=== PATIENT | male | born 1945 | race Caucasian/White ===

== ENCOUNTER 2022-11-01 15:43 | Emergency (ER) | payer MEDICARE ==
[~2022-11-01] VITALS: Ht 182.9 cm; Wt 70.8 kg
[2022-11-01] MEDS ORDERED: ULTRAM 50MG50 MG PO (16:09)
[2022-11-01] MEDS ORDERED: LISINOPRIL10 MG PO (16:11)
== END 2022-11-01 16:30 | disposition home or self-care (01) ==
LOC: ER 15:52
DX: M25.562 Pain in left knee (principal); M25.561 Pain in right knee; R42 Dizziness and giddiness; I10 Essential (primary) hypertension
CPT/HCPCS: 99282

== ENCOUNTER 2023-01-03 10:52 | Inpatient (IN) | payer MEDICARE, OTHER ==
[~2023-01-03] VITALS: Ht 182.9 cm; Wt 72.6 kg
[~2023-01-03 10:52] MED LIST: LISINOPRIL10 MG PO; ULTRAM 50MG50 MG PO
[2023-01-03] MEDS ORDERED: SODIUM CHLORIDE 0.9% 500ML 500 ML IV ONE (11:45)
[2023-01-03 11:47] LABS: BASOPHILS % 0.2 % (0.0-1.0); EOSINOPHILS # (AUTO) 0.8 (0.0-0.4); HEMATOCRIT 28.8 % (38.2-49.6); HEMOGLOBIN 10.8 g/dL (14.0-18.0); LYMPHOCYTES # (AUTO) 1.6 (1.0-3.2); MEAN CORPUSCULAR HEMOGLOBIN 34.2 pg (28-32); MEAN CORPUSCULAR HGB CONC 37.5 g/dL (31-35); MEAN CORPUSCULAR VOLUME 91.1 fL (81-99); MONOCYTES # (AUTO) 0.6 (0.2-0.8); MONOCYTES % 12.9 % (4.4-11.3); NEUTROPHILS # (AUTO) 1.8 (2.1-6.9); NEUTROPHILS % 37.5 % (38.7-80.0); PLATELET COUNT 164 x10e3/uL (140-360); RED BLOOD COUNT 3.16 x10e6/uL (4.3-5.7)
[2023-01-03 12:01] LABS: INR 0.93; PROTHROMBIN TIME 12.9 seconds (11.9-14.5)
[2023-01-03 12:07] LABS: ALBUMIN 3.3 g/dL (3.5-5.0); ALBUMIN/GLOBULIN RATIO 1.2 (0.8-2.0); ANION GAP 11.9 mmol/L (8-16); CALCIUM 8.6 mg/dL (8.4-10.2); CREATININE, SERUM 1.46 mg/dL (0.72-1.25); POTASSIUM 3.9 mmol/L (3.5-5.1)
[2023-01-03 12:33] LABS: CLARITY,URINE CLEAR (CLEAR); COLOR,URINE YELLOW (YELLOW); KETONES,URINE NEGATIVE (NEGATIVE); LEUKOCYTE ESTERASE ,URINE NEGATIVE (NEGATIVE); NITRITE,URINE NEGATIVE (NEGATIVE); PROTEIN,URINE DIPSTICK NEGATIVE (NEGATIVE); URINE UROBILINOGEN 0.2 mg/dL (0.2 - 1)
[2023-01-03 12:34] LABS: RBC,URINE 0-5 /HPF (0-5); WBC,URINE (MAN) 0-5 /HPF (0-5)
[2023-01-03 12:35] LABS: BACTERIA,URINE FEW /HPF; EPITHELIAL CELLS,URINE MODERATE /LPF
[2023-01-03] MEDS ORDERED: ONDANSETRON HCL INJ 2MG/ML 2ML 2 MG/ML VIAL IV PRN (13:00)
[2023-01-03] MEDS ORDERED: NITROGLYCERIN 0.4 MG SUBL SL PRN (13:00)
[2023-01-03] MEDS ORDERED: ASPIRIN 81 MG CHEW TAB PO ONE (13:15)
[2023-01-03 15:00] VITALS: BP 176/81; PULSE 58; RESP 19; TEMP 97.9; O2SAT 96
[2023-01-03] MEDS: FAMOTIDINE 20 MG/2 ML VIAL IV SCH ×2 (15:00→21:50)
[2023-01-03 15:22] VITALS: BP 176/81; PULSE 58; RESP 19; TEMP 97.9; O2SAT 96
[2023-01-03] MEDS ORDERED: HYDRALAZINE HCL 20 MG/ML VIAL IV PRN (20:30)
[2023-01-03 21:40] VITALS: BP 167/89; PULSE 59; RESP 18; TEMP 97.6; O2SAT 100
[2023-01-04] VITALS (9 sets, daily range): BP systolic 126–167; BP diastolic 62–89; PULSE 59–80; RESP 17–21; TEMP 97.4–97.9; O2SAT 97–100
[2023-01-04 03:28] LABS: BASOPHILS % 0.4 % (0.0-1.0); EOSINOPHILS # (AUTO) 0.7 (0.0-0.4); EOSINOPHILS % 12.1 % (0.0-6.0); HEMATOCRIT 29.3 % (38.2-49.6); HEMOGLOBIN 10.7 g/dL (14.0-18.0); LYMPHOCYTES # (AUTO) 1.1 (1.0-3.2); LYMPHOCYTES % 19.2 % (18.0-39.1); MEAN CORPUSCULAR HEMOGLOBIN 33.3 pg (28-32); MEAN CORPUSCULAR HGB CONC 36.5 g/dL (31-35); MEAN CORPUSCULAR VOLUME 91.3 fL (81-99); MONOCYTES # (AUTO) 0.6 (0.2-0.8); MONOCYTES % 11.5 % (4.4-11.3); NEUTROPHILS # (AUTO) 3.1 (2.1-6.9); NEUTROPHILS % 56.3 % (38.7-80.0); PLATELET COUNT 129 x10e3/uL (140-360); RED BLOOD COUNT 3.21 x10e6/uL (4.3-5.7)
[2023-01-04 03:49] LABS: ALBUMIN/GLOBULIN RATIO 1.2 (0.8-2.0); ANION GAP 12.7 mmol/L (8-16); CALCIUM 8.5 mg/dL (8.4-10.2); CHOL/HDL RATIO 3.6 (3.9-4.7); CREATININE, SERUM 1.37 mg/dL (0.72-1.25); POTASSIUM 3.7 mmol/L (3.5-5.1)
[2023-01-04] MEDS: FAMOTIDINE 20 MG/2 ML VIAL IV SCH ×2 (09:27→20:39)
[2023-01-04] MEDS: ASPIRIN 81 MG ENTERIC COATED PO SCH (09:27)
[2023-01-04] MEDS ORDERED: SODIUM CHLORIDE 1 GM TAB PO ONE (11:15)
[2023-01-04] MEDS ORDERED: LORAZEPAM INJ 2 MG/ML VIAL IV ONE (12:00)
[2023-01-04] MEDS: NICOTINE 21 MG/EA PATCH TOP SCH (13:52)
[2023-01-04] MEDS ORDERED: NIFEDIPINE CR 30 MG TAB PO ONE (14:00)
[2023-01-04] MEDS: NIFEDIPINE CR 30 MG TAB PO SCH (20:39)
[2023-01-04] MEDS: ATORVASTATIN 40 MG TAB PO SCH (20:39)
[2023-01-05] VITALS (7 sets, daily range): BP systolic 121–159; BP diastolic 59–82; PULSE 79–87; RESP 17–19; TEMP 97.4–97.9; O2SAT 98–100
[2023-01-05 05:49] LABS: BASOPHILS % 0.2 % (0.0-1.0); EOSINOPHILS # (AUTO) 0.3 (0.0-0.4); EOSINOPHILS % 6.3 % (0.0-6.0); HEMATOCRIT 28.4 % (38.2-49.6); HEMOGLOBIN 10.4 g/dL (14.0-18.0); LYMPHOCYTES # (AUTO) 0.7 (1.0-3.2); LYMPHOCYTES % 13.2 % (18.0-39.1); MEAN CORPUSCULAR HEMOGLOBIN 33.4 pg (28-32); MEAN CORPUSCULAR HGB CONC 36.6 g/dL (31-35); MEAN CORPUSCULAR VOLUME 91.3 fL (81-99); MONOCYTES # (AUTO) 0.6 (0.2-0.8); MONOCYTES % 11.7 % (4.4-11.3); NEUTROPHILS # (AUTO) 3.6 (2.1-6.9); NEUTROPHILS % 68.2 % (38.7-80.0); PLATELET COUNT 160 x10e3/uL (140-360); RED BLOOD COUNT 3.11 x10e6/uL (4.3-5.7); RED CELL DISTRIBUTION WIDTH 11.3 % (11.7-14.4)
[2023-01-05 06:11] LABS: ALBUMIN 3.2 g/dL (3.5-5.0); ALBUMIN/GLOBULIN RATIO 1.2 (0.8-2.0); ANION GAP 12.7 mmol/L (8-16); CALCIUM 8.5 mg/dL (8.4-10.2); CREATININE, SERUM 1.55 mg/dL (0.72-1.25); POTASSIUM 3.7 mmol/L (3.5-5.1)
[2023-01-05] MEDS: NICOTINE 21 MG/EA PATCH TOP SCH (08:41)
[2023-01-05] MEDS: ASPIRIN 81 MG ENTERIC COATED PO SCH (08:42)
[2023-01-05] MEDS: FAMOTIDINE 20 MG/2 ML VIAL IV SCH ×2 (08:42→21:17)
[2023-01-05] MEDS: NIFEDIPINE CR 30 MG TAB PO SCH ×2 (08:42→21:17)
[2023-01-05] MEDS: SODIUM CHLORIDE 0.9% 1000ML 1,000 ML IV SCH (15:25)
[2023-01-05] MEDS: ATORVASTATIN 40 MG TAB PO SCH (21:15)
[2023-01-06] VITALS: BP_SYST 130; BP_SYST 155; BP_DIAS 65; BP_DIAS 74; PULSE 84; PULSE 87; RESP 17; RESP 18; TEMP 97.6; TEMP 97.8; O2SAT 100
[2023-01-06] MEDS: SODIUM CHLORIDE 0.9% 1000ML 1,000 ML IV SCH ×2 (02:30→09:48)
[2023-01-06 04:00] VITALS: BP 132/69; PULSE 69; RESP 18; TEMP 98.4; O2SAT 97
[2023-01-06 06:19] LABS: BASOPHILS % 0.2 % (0.0-1.0); EOSINOPHILS # (AUTO) 0.5 (0.0-0.4); EOSINOPHILS % 12.4 % (0.0-6.0); HEMATOCRIT 29.3 % (38.2-49.6); HEMOGLOBIN 10.6 g/dL (14.0-18.0); LYMPHOCYTES # (AUTO) 1.1 (1.0-3.2); LYMPHOCYTES % 26.4 % (18.0-39.1); MEAN CORPUSCULAR HEMOGLOBIN 33.7 pg (28-32); MEAN CORPUSCULAR HGB CONC 36.2 g/dL (31-35); MONOCYTES # (AUTO) 0.6 (0.2-0.8); MONOCYTES % 13.8 % (4.4-11.3); PLATELET COUNT 180 x10e3/uL (140-360); RED BLOOD COUNT 3.15 x10e6/uL (4.3-5.7); RED CELL DISTRIBUTION WIDTH 11.7 % (11.7-14.4)
[2023-01-06 06:40] LABS: ANION GAP 12.6 mmol/L (8-16); CALCIUM 8.9 mg/dL (8.4-10.2); CREATININE, SERUM 1.57 mg/dL (0.72-1.25); POTASSIUM 3.6 mmol/L (3.5-5.1)
[2023-01-06 08:21] VITALS: BP 134/76; PULSE 74; RESP 17; TEMP 97.5; O2SAT 99
[2023-01-06] MEDS ORDERED: NICOTINE 14 MG/EA PATCH TOP SCH (09:00)
[2023-01-06] MEDS: ASPIRIN 81 MG ENTERIC COATED PO SCH (09:31)
[2023-01-06] MEDS: NICOTINE 21 MG/EA PATCH TOP SCH (09:31)
[2023-01-06] MEDS: NIFEDIPINE CR 30 MG TAB PO SCH (09:31)
[2023-01-06] MEDS: FAMOTIDINE 20 MG/2 ML VIAL IV SCH (09:48)
[2023-01-06] MEDS ORDERED: SODIUM CHLORIDE 0.9% 1000ML 1,000 ML IV SCH (11:30)
[2023-01-06 12:16] VITALS: BP 158/78; PULSE 98; RESP 16; TEMP 97.4; O2SAT 99
[2023-01-06] MEDS ORDERED: ONDANSETRON HCL 4 MG ORAL DISINTEGRATING TAB PO PRN (14:15)
[2023-01-06] MEDS ORDERED: CARVEDILOL 3.125 MG TAB PO SCH (17:00)
[2023-01-06 17:56] VITALS: BP 129/66; PULSE 78; RESP 14; TEMP 97.7; O2SAT 100
[2023-01-06] MEDS ORDERED: COREG3.125 MG PO (18:16)
[2023-01-06] MEDS ORDERED: COZAAR25 MG PO (18:16)
[2023-01-06] MEDS ORDERED: ASPIRIN EC81 MG PO (18:16)
[2023-01-06] MEDS ORDERED: ATORVASTATIN CA40 MG PO (18:16)
[2023-01-06] MEDS ORDERED: FAMOTIDINE 20 MG TAB PO SCH (21:00)
[2023-01-07] MEDS ORDERED: LOSARTAN POTASSIUM 25 MG TAB PO SCH (09:00)
== END 2023-01-06 19:45 | disposition home or self-care (01) | DRG 640 ==
LOC: ER 10:56 → ERHOLD 13:04 → MED/SURG2 14:32
PROVIDERS: ADMIT Internal Medicine; ATTEND Internal Medicine
DX: E87.1 Hypo-osmolality and hyponatremia (principal); G93.41 Metabolic encephalopathy; I50.33 Acute on chronic diastolic (congestive) heart failure; I13.0 Hypertensive heart and chronic kidney disease with heart failure and stage 1 through stage 4 chronic kidney disease, or unspecified chronic kidney disease; N18.30 Chronic kidney disease, stage 3 unspecified; F17.210 Nicotine dependence, cigarettes, uncomplicated; R77.8 Other specified abnormalities of plasma proteins; D64.9 Anemia, unspecified; R60.0 Localized edema
CPT/HCPCS: 36415; 71045; 80048; 80053; 80061; 81001; 82550; 83735; 83880; 84484; 85025; 85610; 85730; 93005; 93306; 99284; J2060; J2405; J7030; J7040

== ENCOUNTER → 2023-08-15 | Day surgery (SDC) | payer MEDICARE, OTHER ==
[2023-08-12 11:47] LABS: BASOPHILS % 0.3 % (0.0-1.0); EOSINOPHILS # (AUTO) 0.9 (0.0-0.4); EOSINOPHILS % 14.8 % (0.0-6.0); HEMATOCRIT 35.5 % (38.2-49.6); HEMOGLOBIN 11.5 g/dL (14.0-18.0); LYMPHOCYTES # (AUTO) 1.7 (1.0-3.2); LYMPHOCYTES % 28.1 % (18.0-39.1); MEAN CORPUSCULAR HEMOGLOBIN 34.4 pg (28-32); MEAN CORPUSCULAR HGB CONC 32.4 g/dL (31-35); MEAN CORPUSCULAR VOLUME 106.3 fL (81-99); MONOCYTES # (AUTO) 0.7 (0.2-0.8); NEUTROPHILS # (AUTO) 2.7 (2.1-6.9); NEUTROPHILS % 44.5 % (38.7-80.0); PLATELET COUNT 174 x10e3/uL (140-360); RED BLOOD COUNT 3.34 x10e6/uL (4.3-5.7); RED CELL DISTRIBUTION WIDTH 12.5 % (11.7-14.4); WHITE BLOOD COUNT 6.02 x10e3/uL (4.8-10.8)
[2023-08-12 11:59] LABS: INR 0.98; PROTHROMBIN TIME 13.2 seconds (11.9-14.5)
[2023-08-12 12:00] LABS: PARTIAL THROMBOPLASTIN TIME 29.9 seconds (23.8-35.5)
[2023-08-12 12:04] LABS: ANION GAP 13.7 mmol/L (8-16); CALCIUM 9.2 mg/dL (8.4-10.2); CREATININE, SERUM 2.1 mg/dL (0.72-1.25); POTASSIUM 4.7 mmol/L (3.5-5.1)
[~2023-08-15] MED LIST changes: +ACETAMINOPHEN 1000 MG/100 ML IV PRN; +ALLEGRA ALLERGY60 MG PO; +ASPIRIN 325 MG TAB PO SCH; +ASPIRIN EC81 MG PO; +ATORVASTATIN CA40 MG PO; +CELECOXIB 100 MG CAP PO SCH; +COREG3.125 MG PO; +COZAAR25 MG PO; +DEXAMETHASONE SOD PHOS INJ 4 MG/ML SDV ONE; +DIPHENHYDRAMINE HCL INJ 50 MG/ML VIAL IV PRN; +DIPHENHYDRAMINE25 M1 PO; +DOCUSATE SODIUM 100 MG CAP PO PRN; +EPHEDRINE SULFATE INJ 50 MG/ML VIAL ONE; +FENTANYL CITRATE/PF 100MCG/2 ML INJ ONE; +HYDROCODONE/APAP 5MG-325MG TAB PO PRN; +HYDROCODONE/APAP 7.5MG-325MG 1 EA TAB ONE; +HYDROCODONE/APAP 7.5MG-325MG 1 EA TAB PO PRN; +LIDOCAINE HCL 2% LOCAL INJ 5 ML SDV VIAL INJ ONE; +MIDAZOLAM HCL 2 MG/2 ML VIAL ONE; +ONDANSETRON HCL INJ 2MG/ML 2ML 2 MG/ML VIAL IV PRN; +ONDANSETRON HCL INJ 2MG/ML 2ML 2 MG/ML VIAL ONE; +PROPOFOL IV EMULSION 10 MG/ML 20 ML VIAL ONE; +ROPIVACAINE 246.25 MG, EPINEPHRINE HCL 1:1000 1ML 0.5 MG, CLONIDINE HCL 0.08 MG, KETORO... INJ ONE; +SODIUM CHLORIDE 0.9% 1000ML 1,000 ML IV SCH; +SODIUM CHLORIDE 0.9% 500ML 500 ML ONE; +TRANEXAMIC ACID 20 ML ONE; +Vancomycin IV 1,000 MG ONE; +ZOLPIDEM TARTRATE 5 MG TAB PO PRN
[2023-08-15] MEDS: LACTATED RINGER'S 1,000 ML ONE (07:57)
[2023-08-15] MEDS: CELECOXIB 200 MG CAP ONE (07:58)
[2023-08-15] MEDS: CEFAZOLIN SODIUM 2 GM ONE (07:58)
[2023-08-15] MEDS: GABAPENTIN 300 MG CAP ONE (07:59)
[2023-08-15] MEDS: DEXAMETHASONE SOD PHOS 10 MG/1 ML VIAL ONE (07:59)
[2023-08-15 12:50] VITALS: BP 154/80; PULSE 60; RESP 18; O2SAT 98
[2023-08-15] MEDS: HYDROCODONE/APAP 7.5MG-325MG 1 EA TAB PO ONE (13:00)
== END | disposition home health service (06) ==
LOC: OR 07:06
PROVIDERS: ATTEND Specialist
DX: M17.12 Unilateral primary osteoarthritis, left knee (principal); M65.9 Synovitis and tenosynovitis, unspecified; M25.762 Osteophyte, left knee; I25.10 Atherosclerotic heart disease of native coronary artery without angina pectoris; I13.0 Hypertensive heart and chronic kidney disease with heart failure and stage 1 through stage 4 chronic kidney disease, or unspecified chronic kidney disease; N18.32 Chronic kidney disease, stage 3b; I50.9 Heart failure, unspecified; F17.210 Nicotine dependence, cigarettes, uncomplicated; Z88.6 Allergy status to analgesic agent; Z01.810 Encounter for preprocedural cardiovascular examination; Z01.812 Encounter for preprocedural laboratory examination; Z01.818 Encounter for other preprocedural examination; Z79.899 Other long term (current) drug therapy; Z95.5 Presence of coronary angioplasty implant and graft
CPT/HCPCS: 27447; 36415; 71046; 73560; 80048; 85025; 85610; 85730; 86850; 86900; 93005; 97110; 97116; 97161; 97530; C1713 ×2; C1776 ×2; J0171; J1100; J1885; J2250; J2795; J3010; J3370; J7040; J7121; J2001; J2405

== ENCOUNTER 2025-03-11 12:16 | Emergency (ER) | payer MEDICARE, OTHER ==
[~2025-03-11] VITALS: Ht 182.9 cm; Wt 64.9 kg
[~2025-03-11 12:16] MED LIST changes: -ACETAMINOPHEN 1000 MG/100 ML IV PRN; -ASPIRIN 325 MG TAB PO SCH; -CELECOXIB 100 MG CAP PO SCH; -DEXAMETHASONE SOD PHOS INJ 4 MG/ML SDV ONE; -DIPHENHYDRAMINE HCL INJ 50 MG/ML VIAL IV PRN; -DOCUSATE SODIUM 100 MG CAP PO PRN; -EPHEDRINE SULFATE INJ 50 MG/ML VIAL ONE; -FENTANYL CITRATE/PF 100MCG/2 ML INJ ONE; -HYDROCODONE/APAP 5MG-325MG TAB PO PRN; -HYDROCODONE/APAP 7.5MG-325MG 1 EA TAB ONE; -HYDROCODONE/APAP 7.5MG-325MG 1 EA TAB PO PRN; -LIDOCAINE HCL 2% LOCAL INJ 5 ML SDV VIAL INJ ONE; -MIDAZOLAM HCL 2 MG/2 ML VIAL ONE; -ONDANSETRON HCL INJ 2MG/ML 2ML 2 MG/ML VIAL IV PRN; -ONDANSETRON HCL INJ 2MG/ML 2ML 2 MG/ML VIAL ONE; -PROPOFOL IV EMULSION 10 MG/ML 20 ML VIAL ONE; -ROPIVACAINE 246.25 MG, EPINEPHRINE HCL 1:1000 1ML 0.5 MG, CLONIDINE HCL 0.08 MG, KETORO... INJ ONE; -SODIUM CHLORIDE 0.9% 1000ML 1,000 ML IV SCH; -SODIUM CHLORIDE 0.9% 500ML 500 ML ONE; -TRANEXAMIC ACID 20 ML ONE; -Vancomycin IV 1,000 MG ONE; -ZOLPIDEM TARTRATE 5 MG TAB PO PRN
[2025-03-11 13:05] VITALS: TEMP 97.6
[2025-03-11 13:40] LABS: BASOPHILS % 0.2 % (0.0-1.0); EOSINOPHILS % 11.3 % (0.0-6.0); LYMPHOCYTES % 34.3 % (18.0-39.1); MONOCYTES % 11.9 % (4.4-11.3); NEUTROPHILS % 41.9 % (38.7-80.0); RED CELL DISTRIBUTION WIDTH 14.4 % (11.7-14.4)
[2025-03-11 13:54] LABS: EST GLOMERULAR FILTRATION RATE 33.0 ML/MIN (>=60)
[2025-03-11 14:30] VITALS: RESP 17
[2025-03-11 15:30] VITALS: PULSE 57; O2SAT 100
[2025-03-11 16:31] LABS: LEUKOCYTE ESTERASE ,URINE NEGATIVE (NEGATIVE); PROTEIN,URINE DIPSTICK NEGATIVE (NEGATIVE); URINE UROBILINOGEN 0.2 mg/dL (0.2 - 1)
[2025-03-11 16:37] LABS: HYALINE CASTS 0-1 (0-1)
[2025-03-11] MEDS ORDERED: LASIX40 MG PO (16:49)
== END 2025-03-11 17:15 | disposition home or self-care (01) ==
LOC: ER 13:07
DX: R60.9 Edema, unspecified (principal); I12.9 Hypertensive chronic kidney disease with stage 1 through stage 4 chronic kidney disease, or unspecified chronic kidney disease; N18.9 Chronic kidney disease, unspecified; I50.9 Heart failure, unspecified; F03.90 Unspecified dementia, unspecified severity, without behavioral disturbance, psychotic disturbance, mood disturbance, and anxiety
CPT/HCPCS: 36415; 71046; 80053; 81001; 83880; 85025; 93005; 99284